=== PATIENT | male | born 1995 | race Two or more races ===

== ENCOUNTER 2017-04-28 21:32 | Emergency (ER) | payer SELFPAY ==
--- NOTE | 2017-04-28 21:52 | NUR ---
PT STATES HE FEELS BETTER, NO LONGER WISHES TO BE SEEN BY A MD. AOX4, W/ RESP EVEN & UNLABORED, REFUSING TO BE TRIAGED W/ NAD NOTED.
== END 2017-04-28 21:52 | disposition left against medical advice (07) ==
LOC: ER 21:36
DX: Z53.21 Procedure and treatment not carried out due to patient leaving prior to being seen by health care provider (principal)